=== PATIENT | male | born 1990 ===

== ENCOUNTER → 2018-04-28 21:11 | Outpatient (REF) | payer OTHER, SELFPAY ==
[2018-05-02 11:08] LABS: QuantiFERON TB NEGATIVE (Negative)
[2018-05-04 13:44] LABS: Rapid Plasma Reagin NON-REACTIVE
== END ==
LOC: LAB 21:11
PROVIDERS: Visit Provider Family Medicine Adult Medicine
DX: Z00.00 Encounter for general adult medical examination without abnormal findings (principal)
CPT/HCPCS: 86480; 86592; 87591